=== PATIENT | female | born 1955 | race Caucasian/White ===

== ENCOUNTER 2016-08-18 15:05 | Outpatient (CLI) | payer OTHER ==
[~2016-08-18] VITALS: Ht 167.6 cm; Wt 62.4 kg
[2016-08-18] MEDS ORDERED: EST30C VG (15:15)
[2016-08-18 15:19] VITALS: BP 135/77
[2016-08-18 15:52] LABS: BASOPHILS % (AUTO) 0 % (0-10); EOSINOPHILS # (AUTO) 0.2 10^3/uL (0.0-0.3); EOSINOPHILS % (AUTO) 3 % (0-10); LYMPHOCYTES # (AUTO) 2.3 X 10^3 (1.0-4.0); LYMPHOCYTES % (AUTO) 33 % (12-44); MEAN CORPUSCULAR HEMOGLOBIN 30 PG (25-34); MEAN CORPUSCULAR HGB CONC 34 G/DL (32-36); MEAN CORPUSCULAR VOLUME 89 FL (80-99); MEAN PLATELET VOLUME 10.6 FL (7.4-10.4); MONOCYTES # (AUTO) 0.7 X 10^3 (0.0-1.0); MONOCYTES % (AUTO) 10 % (0-12); NEUTROPHILS # (AUTO) 3.6 X 10^3 (1.8-7.8); NEUTROPHILS % (AUTO) 53 % (42-75); PLATELET COUNT 209 10^3/uL (130-400); RED BLOOD COUNT 4.65 10^6/uL (4.35-5.85); WHITE BLOOD COUNT 6.8 10^3/uL (4.3-11.0)
== END 2016-08-18 16:00 | disposition home or self-care (01) ==
LOC: PREOP 15:05
PROVIDERS: ATTEND Obstetrics & Gynecology
DX: Z01.812 Encounter for preprocedural laboratory examination (principal); Z11.2 Encounter for screening for other bacterial diseases; N81.4 Uterovaginal prolapse, unspecified; D64.9 Anemia, unspecified
CPT/HCPCS: 36415; 85025; 86850; 86900; 86901; 87081

== ENCOUNTER 2016-08-25 10:00 | Day surgery (SDC) | payer OTHER ==
[~2016-08-25] VITALS: Ht 167.6 cm; Wt 62.4 kg
[~2016-08-25 10:00] MED LIST: EST30C VG
[2016-08-25] MEDS ORDERED: BUP/EPI 0.25% 1:200,000 (MARCAINE) 30 ML VIAL ONE (10:08)
[2016-08-25] MEDS ORDERED: ESTRADIOL VAGINAL CREAM 42.5 GM (ESTRACE) VG ONE (10:08)
[2016-08-25] MEDS ORDERED: ceFAZolin 1,000 MG (ANCEF) VIAL ONE (10:12)
[2016-08-25] MEDS ORDERED: NS (IVPB) 50 ML ONE (10:12)
[2016-08-25] MEDS: LACTATED RINGERS 1,000 ML IV PRN ×3 (10:15→14:35)
[2016-08-25] MEDS ORDERED: ONDANSETRON 4 MG/2 ML (SDV) Z0FRAN IV ONE (10:30)
[2016-08-25] MEDS ORDERED: FAMOTIDINE 20MG/2ML IV (PEPCID) IV ONE (10:30)
[2016-08-25] MEDS ORDERED: MIDAZOLAM 2 MG/2 ML (VERSED) VIAL IV ONE (10:30)
[2016-08-25] MEDS ORDERED: ceFAZolin 1 GM/NS 50 ML IVPB IV ONE ×2 (10:30)
[2016-08-25] MEDS ORDERED: SCOPOLAMINE 1.5 MG (TRANSDERM-SCOP) PATCH TOP ONE (10:30)
[2016-08-25] MEDS ORDERED: CATHETER FLUSH 10 ML SYR IV PRN (10:30)
[2016-08-25] MEDS ORDERED: ESTROGENS CONJ IV 25 MG/5 ML (PREMARIN) VIAL IV ONE (10:30)
[2016-08-25] MEDS ORDERED: LACTATED RINGERS 1,000 ML IV ONE ×3 (10:36→13:43)
[2016-08-25] MEDS ORDERED: ONDANSETRON 4 MG/2 ML (SDV) Z0FRAN ONE (10:36)
[2016-08-25] MEDS ORDERED: SEVOFLURANE (ULTANE) 15 ML INHAL SOLN ONE ×4 (10:36→13:57)
[2016-08-25] MEDS ORDERED: ROCURONIUM 50 MG/5 ML (ZEMURON) VIAL IV ONE (10:36)
[2016-08-25] MEDS ORDERED: proPOfol 200 MG/20 ML (DIPRIVAN) VIAL IV ONE (10:36)
[2016-08-25] MEDS ORDERED: LIDOCAINE PF 2% 10 ML (XYLOCAINE) AMP ONE (10:36)
[2016-08-25] MEDS ORDERED: DEXAMETHASONE PF 10 MG/ML (DECADRON) VIAL ONE (10:36)
[2016-08-25] MEDS ORDERED: fentaNYL INJECTION 100 MCG/2 ML AMP ONE ×2 (10:36→13:36)
[2016-08-25 10:44] VITALS: BP 157/79
--- NOTE | 2016-08-25 11:37 | Progress Note-Pre Operative ---
Pre-Operative Progress Note H&P Reviewed The H&P was reviewed, patient examined and no changes noted. Date H&P Reviewed: Aug 25, 2016 Time H&P Reviewed: 11:36 Pre-Operative Diagnosis: uuterovaginal prolapse/stress urinary incontinence DALLAS QUINONEZ MD Aug 25, 2016 11:37 am
[2016-08-25] MEDS ORDERED: WATER (STERILE) FOR INJ 10 ML BTL INJ ONE (11:45)
[2016-08-25] MEDS ORDERED: ESTROGENS CONJ IV 25 MG/5 ML (PREMARIN) VIAL IVP ONE (11:45)
[2016-08-25] MEDS ORDERED: MEPERIDINE (DEMEROL) INJ 100 MG/ML IM PRN (11:45)
[2016-08-25] MEDS ORDERED: ONDANSETRON 4 MG/2 ML (SDV) Z0FRAN IVP PRN ×2 (11:45→14:15)
[2016-08-25] MEDS ORDERED: oxyCODONE/APAP 10/325MG (PERCOCET 10) TABLET PO PRN (11:45)
[2016-08-25] MEDS ORDERED: BENZOCAINE/MENTHOL (DERMOPLAST) 56 ML CAN TP PRN (11:45)
[2016-08-25] MEDS ORDERED: NEOSTIGMINE (BLOXIVERZ ) 1 MG/1ML 10 ML VIAL ONE (13:23)
[2016-08-25] MEDS ORDERED: GLYCOPYRROLATE 0.2 MG/ML (ROBINUL) 2 ML VIAL ONE (13:23)
--- NOTE | 2016-08-25 13:41 | Progress Note-Post Operative ---
Post-Operative Progess Note Surgeon (s)/Cosmetic Counselor (s) Surgeon GIULIA MAN MD Cosmetic Counselor: CRISTIANO Pre-Operative Diagnosis MIXED INCONTINENCE, ISD, OAB Post-Operative Diagnosis SAME Post-Op Procedure Note Date of Procedure: Aug 25, 2016 Name of Procedure Performed: PVS AND CYSTO Description of the Procedure: PER DICTATION Findings of the Procedure SAME Anesthesia Type GENERAL Estimated blood loss (mL): 50CC Specimen(s) collected/removed NONE GIULIA MAN MD Aug 25, 2016 1:41 pm
[2016-08-25] MEDS ORDERED: HYDROmorphone (DILAUDID) 2 MG/ML VIAL ONE (13:49)
[2016-08-25] MEDS ORDERED: morphine INJ 10 MG/ML 1ML (SYR OR VIAL) ONE (13:49)
[2016-08-25] MEDS ORDERED: WATER (STERILE) FOR INJECTION 10 ML ONE (13:50)
[2016-08-25] MEDS ORDERED: ESTROGENS CONJ IV 25 MG/5 ML (PREMARIN) VIAL ONE (13:50)
[2016-08-25] MEDS ORDERED: fentaNYL INJECTION 100 MCG/2 ML AMP IVP PRN (14:15)
[2016-08-25] MEDS ORDERED: morphine INJ 10 MG/ML 1ML (SYR OR VIAL) IVP PRN (14:15)
[2016-08-25] MEDS ORDERED: HYDROmorphone (DILAUDID) 2 MG/ML VIAL IVP PRN (14:15)
[2016-08-25] MEDS: KETOROLAC 30 MG/ML VIAL IVP SCH ×2 (14:19→20:25)
[2016-08-25] MEDS: D5 LR IV SOLUTION 1,000 ML IV SCH ×2 (15:30→20:25)
[2016-08-25 15:31] VITALS: BP 118/70
--- NOTE | 2016-08-25 15:59 | OPERATIVE REPORT ---
DATE OF SERVICE: 08/25/2016 PREOPERATIVE DIAGNOSIS ON MY PART: Mixed urinary incontinence with overactive bladder and ISD. POSTOPERATIVE DIAGNOSIS ON MY PART: Mixed urinary incontinence with overactive bladder and ISD. OPERATION PERFORMED: Pubovaginal sling and cystoscopy. SURGEON: Giulia Man MD ANESTHESIA: General. COMPLICATIONS: None. BODY SPECIALIST: Darrell Sanchez MD SUMMARY: After Dr. Sanchez performed the first part of his surgery that he will dictate, I inserted a Cho catheter draining clear urine. I went ahead and patched the Solyx pubovaginal sling device on both sides using the described technique. The sling was sitting nicely under the mid urethra with no tension or twist and passed a curved hemostat easily between it and the underlying tissue. I went ahead and removed the Cho catheter, performed cystoscopy to confirm the integrity of the bladder, ureteral orifices and urethra and presence of the sling under the mid urethra. I left the bladder half full to perform manual Valsalva maneuver after removing the cystoscope and it was negative. I reinserted the Cho catheter, draining clear urine. I left it to abundant drainage. The patient tolerated the procedure and anesthesia well and Dr. Sanchez proceeded with the rest of the surgery that he will dictate. Job ID: [id number] DocumentID: [id number] Dictated Date: 08/25/2016 13:42:06 Sap Crm Developer Date: 08/25/2016 15:59:04 Dictated By: GIULIA MAN MD
[2016-08-25 20:00] VITALS: BP 112/63
[2016-08-26] VITALS: BP 99/54
[2016-08-26] MEDS: KETOROLAC 30 MG/ML VIAL IVP SCH ×2 (02:22→06:51)
[2016-08-26 04:30] VITALS: BP 98/61
[2016-08-26] MEDS: D5 LR IV SOLUTION 1,000 ML IV SCH (04:40)
--- NOTE | 2016-08-26 06:26 | Progress Note-Standard ---
Standard Progress Note Progress Notes/Assess & Plan Progress/Assessment & Plan patient is without complaint. She is tolerating by mouth well and has good pain control. Her Cho catheter was just now removed and bladder trial is ongoing. Patient has no nausea. Patient denies chest pain, denies shortness of breath, denies headache. Vital Signs Date Time Temp Pulse Resp B/P (MAP) Pulse Ox O2 Delivery O2 Flow Rate FiO2 08/26/16 04:30 98.2 64 17 98/61 92 Room Air 08/26/16 00:00 97.8 61 18 99/54 93 Room Air 08/25/16 20:00 97.8 69 18 112/63 98 Nasal Cannula 2.00 08/25/16 15:31 97.5 59 16 118/70 97 Room Air 08/25/16 10:44 96.9 67 16 157/79 95 Room Air I & O 08/26/16 07:00 Intake Total 3050 ml Output Total 240 ml Balance 2810 ml vital signs are stable. Patient is afebrile. Abdomen is benign. Bowel sounds are present. Extremities show clubbing or cyanosis. There is no Homans sign. Assessment and plan postoperative day number 1 doing well. Plan is for routine care today with discharge home providing bladder function is adequate. Final Diagnosis vaginal prolapse/stress urinary incontinence DALLAS QUINONEZ MD Aug 26, 2016 6:26 am
[2016-08-26] MEDS ORDERED: DOCU100C37 PO (06:27)
[2016-08-26] MEDS ORDERED: IBUP-1780 PO (06:27)
[2016-08-26] MEDS ORDERED: OXYC-465 PO (06:27)
--- NOTE | 2016-08-26 06:29 | Discharge Instructions ---
Discharge Instructions Discharge Medications New, Converted or Re-Newed RX: RX on Chart Patient Instructions Patient Instructions: as directed Return to The Hospital For: as directed Activity & Diet Discharge Diet: No Restrictions Activity as Tolerated: No Orders-Post D/C & Referrals Follow Up Appt: return to clinic with me next SundayAugust 30, 2016 at 930 a.m. for staple removal Call to make follow up appt. for patient in 4 weeks. Activity: Rest for 24 hours, than as tolerated. Wound Care: May remove Band-Aid tomorrow. Replace as desired. Keep incisions clean and dry. Wash daily with soap and water. Please call in RX to patient pharmacy. Diet: As tolerated-Clear Liquids only if nauseated. Tomorrow, may shower or tub bathe as desired. No driving for 24 hours, no alcoholic beverages for 24 hours, and nothing per vagina (no tampons, douching, or intercourse) for 8 weeks. Patient to return to the clinic as soon as possible for: Temperature greater than 101F, Severe Pain, Foul discharge from incision or vagina, Excessive Bleeding (more than a period). DALLAS QUINONEZ MD Aug 26, 2016 6:29 am
[2016-08-26 08:00] VITALS: BP 140/75
--- NOTE | 2016-08-26 09:40 | Anesthesia-General Post-Op ---
General Patient Condition Mental Status/LOC: Same as Preop Cardiovascular: Satisfactory Nausea/Vomiting: Absent Respiratory: Satisfactory Pain: Controlled Complications: Absent Post Op Complications Complications None Follow Up Care/Instructions Patient Instructions None needed. Anesthesia/Patient Condition Patient Condition Patient is doing well, no complaints, stable vital signs, no apparent adverse anesthesia problems. No complications reported per nursing. EDUAR PERERA CRNA Aug 26, 2016 09:40
[2016-08-26] MEDS: DOCUSATE SODIUM 100 MG (COLACE) CAP PO SCH ×2 (09:59→21:32)
--- NOTE | 2016-08-26 10:22 | Progress Note-Urology ---
Progress Note-Urology Progress Notes/Assess & Plan Progress/Assessment & Plan DOING WELL. HAS NOT VOIDED SINCE MENENDEZ OUT. TEACH SELF CATH AND DISCHARGE. Final Diagnosis INCONTINENCE GIULIA MAN MD Aug 26, 2016 10:22 am
--- NOTE | 2016-08-26 11:01 | OPERATIVE REPORT ---
DATE OF SERVICE: 08/25/2016 PREOPERATIVE DIAGNOSIS: Uterovaginal prolapse and stress urinary incontinence. POSTOPERATIVE DIAGNOSIS: Uterovaginal prolapse and stress urinary incontinence. OPERATIVE PROCEDURE: Total laparoscopic hysterectomy with bilateral salpingo-oophorectomy using da Pascale assistance as well as anterior and posterior vaginal repair with enterocele repair and with Dr. Patel performing a pubovaginal sling and cystoscopy. OPERATIVE DESCRIPTION: With the patient in the supine position under satisfactory general anesthesia, she is repositioned in the dorsal lithotomy position in the [facility] and prepped and draped in the usual fashion for abdominal and vaginal surgery. Cho catheter was placed in the urinary bladder and left to drainage. A weighted speculum was placed in the posterior fornix of the vagina. Cervix was exposed and grasped anteriorly with single tooth tenaculum. The cervix prolapsed outside the introitus. There was a 3rd degree cystocele present and a 1st-2nd degree rectocele. The uterus was sounded to 10 cm with the uterine sound. The cervix was then serially dilated with David dilators to accommodate a BART II manipulator which was placed using a 6 mm x 8 cm uterine probe and a 30 mm colpotomy ring. Sutures of #1 Vicryl were placed at 3 and 9 o'clock positions of the cervix and affixed to the manipulator as well. The patient was brought in the low dose lithotomy position. A 12 mm incision was made just superior to the umbilicus, 8 mm incisions were made 9 cm lateral to the umbilicus on both sides. All 3 incision sites were infiltrated with 0.25% Marcaine with epinephrine prior to the incision. Veress needle was placed through the umbilical incision. Correct placement confirmed with a water drop test. The abdomen was insufflated with 2.4 liters of carbon dioxide, then the Veress needle was removed and a 12 mm Optiview laparoscopic port placed. Laparoscope port placed. Laparoscope was introduced. The abdominal wall was transilluminated and ports of 8 mm were placed under direct vision through those sites. The patient was now placed in Trendelenburg allowing the bowel to split up out of the pelvis and da [email or web address] console was then advanced onto the patient and docked and operative instrument placed in the right and left lateral ports and I retired to the da Pascale console. At the console, the pelvis was examined. Both ovaries were somewhat atretic appearing. Fallopian tubes showed evidence of remote tubal sterilization. There was a single focus of endometriosis in the right ovarian fossa. The uterus was somewhat mottled in appearance but otherwise normal. The laparoscope was rotated. The appendix was identified. It was a normal vermiform appendix. There were some adhesions of the sigmoid to the left pelvic brim. These were light and filmy. They were elevated and the vessel sealer was used to clamp, cauterize, and divide those adhesions, avoiding any thermal or traumatic injury to the bowel or to adjacent structures. With the adhesions dealt with, attention was turned to the intended procedure. The right fallopian tube and ovary were grasped and elevated. The IP ligament was clamped, cauterized and divided with the vessel sealer. This continued across the mesovarium across the round ligament and across the broad ligaments to the side of the uterus and then down the side of the uterus onto the cardinal ligament. The right ureter was seen to peristalse medial to the IP ligament and lateral to the cervix. The same procedure was performed on the left with the same result and that ureter was identified and was well away from the areas of dissection as well. The vessel sealer was now replaced with a monopolar shear. The anterior lower uterine segment of the peritoneum was divided, allowing the bladder to be dissected down off the lower uterine segment and off of the cervix, exposing the vaginal wall at its junction with the cervix. A colpotomy incision was started at the 12 o'clock position and continued circumferentially to the 2 o'clock position, then counterclockwise until the entire colpotomy ring was exposed, allowing for removal of the uterus with the tubes and ovaries still attached through the vagina. The vaginal cuff was now closed using a Cobra grasper on the left and a Merlin Cut needle tanker driver on the right and using 2 V-Loc Nakia sutures starting 1st from the right angle and including the closure of the uterine vessels in the suture, and then continuing to the midportion of the vaginal cuff and then doing the same thing from the left. The peritoneum was brought back down onto the vaginal cuff with the final suture. Hemostasis was complete. Good reapproximation of the tissue was evident and good support of the vaginal apex was achieved by attaching the vaginal apex to the uterosacral ligament with the initial 2 suture placements on each side. The pelvis was now copiously irrigated and examined for hemostasis, which was complete, with no abnormal pathology and the procedure complete. The da Pascale instruments were removed. The console was removed from the patient. The patient was brought out of Trendelenburg. The abdomen was evacuated. The insufflating gas and all ports were removed under direct vision in the process. The skin incisions were closed with veronika after closing the fascia at the umbilical incision with the [id number] suture of 2-0 Vicryl. Attention was now turned to the anterior and posterior vaginal repairs. The patient was brought in dorsal lithotomy position. The Cho catheter was removed. A weighted speculum was placed in the posterior fornix at the time. The vaginal wall was grasped in its midpoint with 2 Jolly clamps. At this point, the patient had essentially a 1st-2nd degree cystocele as the large portion of the cystocele was elevated by support of the vaginal apex. The vaginal wall was opened in the midline with Metzenbaum scissors. The bladder was carefully dissected off the muscularis of the vagina back to the pubic rami bilaterally. The bladder wall was then plicated with 2-0 Vicryl sutures, reapproximating the endopelvic fascia onto the bladder as well. Good support of the bladder and urethra was evident. The urethra was somewhat elongated by the sutures by elevating the bladder wall. Dr. Patel assumed care of the patient at this point performing a ____ vaginal sling and cystoscopy, which he will dictate. I remained to assist. Upon completion of Dr. Patel's portion of the procedure, I resumed care of the patient, resected rent down to anterior vaginal wall muscularis mucosa and then closed the vaginal wall with a running locked suture of 3-0 Vicryl. Good support was evident and good hemostasis was achieved. Posterior repair was now affected by placing Jolly clamps on the perineum and the hymenal ring at 5 and 7 o'clock position. The inverted triangle of skin was removed from the perineal body and then upright from the posterior vaginal floor. The rectovaginal space was entered sharply and dissected bluntly to the apex of the vagina where it was explored for an enterocele. There was a small one that was plicated with 2 pursestring sutures of 2-0 Vicryl obliterating the enterocele. The rectovaginal space was then obliterated with additional sutures of 2-0 Vicryl. The perineal body was restored with sutures of 2-0 Vicryl. Redundant posterior vaginal wall muscularis mucosa was removed sharply. The vaginal wall was closed with a running suture of 3-0 Vicryl. That closure was continued past the hymenal ring and back down onto the perineal body and then back up subcu to the hymenal ring where the suture was tied. Digital rectal exam confirmed no stricture or stenosis of the rectum. The vagina was examined for hemostasis. That being complete, the vagina was filled with vaginal cream and a gauze of Kerlix was used for packing for the vagina. The Cho catheter was left to dependent drainage by Dr. Patel. Sponge and needle counts were correct on completion of the procedure. Estimated blood loss was around 200 mL. The patient tolerated the procedure well and was uneventfully awakened from general anesthesia and transferred to the recovery room in stable condition. Job ID: [id number] DocumentID: [id number] Dictated Date: 08/25/2016 14:04:13 Software Development Coordinator Date: 08/25/2016 17:34:40 Dictated By: DALLAS QUINONEZ MD
[2016-08-26 12:00] VITALS: BP 158/71
[2016-08-26] MEDS: IBUPROFEN 800 MG (MOTRIN) TAB PO SCH ×2 (12:00→18:08)
[2016-08-26 16:00] VITALS: BP 132/70
[2016-08-26 21:30] VITALS: BP 91/58
[2016-08-27] MEDS: IBUPROFEN 800 MG (MOTRIN) TAB PO SCH ×2 (01:28→06:36)
[2016-08-27 03:05] VITALS: BP 112/64
--- NOTE | 2016-08-27 07:32 | Progress Note-Standard ---
Standard Progress Note Progress Notes/Assess & Plan Progress/Assessment & Plan patient is without complaint. She is tolerating by mouth well and has good pain control. Her Cho catheter was just now removed and bladder trial is ongoing. Patient has no nausea. Patient denies chest pain, denies shortness of breath, denies headache. Vital Signs Date Time Temp Pulse Resp B/P (MAP) Pulse Ox O2 Delivery O2 Flow Rate FiO2 08/26/16 04:30 98.2 64 17 98/61 92 Room Air 08/26/16 00:00 97.8 61 18 99/54 93 Room Air 08/25/16 20:00 97.8 69 18 112/63 98 Nasal Cannula 2.00 08/25/16 15:31 97.5 59 16 118/70 97 Room Air 08/25/16 10:44 96.9 67 16 157/79 95 Room Air I & O 08/26/16 07:00 Intake Total 3050 ml Output Total 240 ml Balance 2810 ml vital signs are stable. Patient is afebrile. Abdomen is benign. Bowel sounds are present. Extremities show clubbing or cyanosis. There is no Homans sign. Assessment and plan postoperative day number 1 doing well. Plan is for routine care today with discharge home providing bladder function is adequate. August 27, 2016 Patient is without complaint. She is ambulating, tolerating by mouth well, has good pain control. her discharge was held yesterday secondary to urinary retention. She still is not voiding adequately half-hour she is able to straight catheter per Dr. Dove 4 hours when necessary. She feels ready for discharge home today Vital Signs Date Time Temp Pulse Resp B/P (MAP) Pulse Ox O2 Delivery O2 Flow Rate FiO2 08/27/16 03:05 99.0 82 18 112/64 96 Room Air 08/26/16 21:30 98.7 76 18 91/58 94 Room Air 08/26/16 16:00 100.4 81 18 132/70 95 Room Air 08/26/16 12:00 99.6 70 18 158/71 98 Room Air 08/26/16 08:00 97.8 63 18 140/75 96 Room Air I & O 08/27/16 07:00 Intake Total 2640 ml Output Total 1635 ml Balance 1005 ml Vital signs are stable. Patient is afebrile. Abdomen is benign. Extremities show clubbing cyanosis. There is no Homans sign. Assessment and plan postoperative day number 2 doing well. Plan is for discharge home with follow-up in clinic Final Diagnosis vaginal prolapse/stress urinary incontinence DALLAS QUINONEZ MD Aug 27, 2016 7:32 am
[2016-08-27 08:00] VITALS: BP 105/56
[2016-08-27] MEDS: DOCUSATE SODIUM 100 MG (COLACE) CAP PO SCH (09:48)
== END 2016-08-27 10:55 | disposition home or self-care (01) ==
LOC: SDC 10:00 → WS 15:29 → SDC 08-27 10:55
PROVIDERS: ATTEND Obstetrics & Gynecology
DX: N81.3 Complete uterovaginal prolapse (principal); N39.3 Stress incontinence (female) (male); N80.0 Endometriosis of uterus; N83.8 Other noninflammatory disorders of ovary, fallopian tube and broad ligament
CPT/HCPCS: 88307; 94664; 96361; 96375; 96376

== ENCOUNTER 2018-11-28 18:09 | Emergency (ER) | payer OTHER ==
[~2018-11-28] VITALS: Ht 167.6 cm; Wt 64.0 kg
[~2018-11-28 18:09] MED LIST changes: +DOCU100C37 PO; +IBUP-1780 PO; +OXYC-465 PO
[2018-11-28] MEDS ORDERED: MOME15CR17 TP (18:41)
[2018-11-28] MEDS ORDERED: METH4TAB PO (18:41)
--- NOTE | 2018-11-28 18:41 | ED Integumentary General ---
General Chief Complaint: Skin/Wound Problems Stated Complaint: RASH ON R ARM AND BACK Nursing Triage Note: LEOBARDO STATES THAT SHE HAS HAD A RASH ON HER ARMS LEGS AND ACROSS HER BACK X2 WEEKS. SHE HAD A SUNBURN ON 11/13 BUT NO OTHER ISSUES WITH HER SKIN. Source: patient History of Present Illness Date Seen by Provider: Nov 28, 2018 Time Seen by Provider: 18:28 Initial Comments PT ARRIVES VIA POV C/O VERY ITCHY RASH ON ARMS, UPPER BACK, AND SHINS STATES SHE GOT A SUNBURN TO THESE AREAS ON 11/13, THEN A WEEK LATER SUNBURN WAS ABOUT HEALED, SHE BEGAN WITH THIS RASH IN THIS SAME AREA. PUT ALOE VERA ON SUNBURN, BUT HAS NOT USED IT IN A WEEK. HAS NOT TAKEN ANY BENADRYL, ETC, OR APPLIED ANY THING TO RASH TO HELP WITH ITCHING NO HISTORY OF SIMILAR NO RECENT ILLNESS NO NEW FOODS, PRODUCTS, MEDICATIONS OR EXPOSURES WORKS AT [employer]--NO NEW EXPOSURES AT WORK PCP: NONE Allergies and Home Medications Allergies Coded Allergies: No Known Drug Allergies (Unverified , 08/18/16) Home Medications Docusate Sodium 100 Mg Capsule, 100 MG PO BID Prescribed by: DALLAS FREDERICK on 08/26/16626 Estrogens Conjugated 30 Gm Cr, 30 GM VG HS, (Reported) Ibuprofen 800 Mg Tablet, 800 MG PO Q6HR Prescribed by: DALLAS FREDERICK on 08/26/16626 Methylprednisolone 4 Mg Tab.ds.pk, 4 MG PO UD Prescribed by: CHACHA ALVARADO on 11/28/181840 Mometasone Furoate 15 Gm Cream..g., 0 TP TID Prescribed by: CHACHA ALVARADO on 11/28/181840 Oxycodone HCl/Acetaminophen 1 Each Tablet, 1-2 TAB PO Q4H PRN for PAIN Prescribed by: DALLAS FREDERICK on 08/26/16626 Patient Home Medication List Home Medication List Reviewed: Yes Review of Systems Review of Systems Constitutional: no symptoms reported EENTM: no symptoms reported Respiratory: no symptoms reported Cardiovascular: no symptoms reported Gastrointestinal: no symptoms reported Genitourinary: no symptoms reported Musculoskeletal: no symptoms reported Skin: see HPI, pruritus, rash Psychiatric/Neurological: No Symptoms Reported Endocrine: No Symptoms Reported Hematologic/Lymphatic: No Symptoms Reported Past Ukcoswi-Bmompa-Ztdkxk Hx Patient Social History Alcohol Use: Denies Use Recreational Drug Use: No Smoking Status: Former Smoker 2nd Hand Smoke Exposure: No Recent Foreign Travel: No Contact w/Someone Who Travel: No Recent Infectious Disease Expo: No Recent Hopitalizations: No Seasonal Allergies Seasonal Allergies: No Past Medical History Surgeries: Yes (ESOPHAGEAL SURGERY-SWALLOWED FOREIGN OBJECT A CHILD) Section, Hysterectomy, Tubal Ligation Respiratory: No Cardiac: No Neurological: No Reproductive Disorders: Yes (UTEROVAGINAL PROLAPSE) Female Reproductive Disorders: Denies WALL WASHER History: Menopausal HIV/AIDS: No Genitourinary: No Gastrointestinal: Yes (SURGERY FOR SWALLOWED FOREIGN BODY A CHILD) Musculoskeletal: No Endocrine: No Loss of Vision: Bilateral Hearing Impairment: Denies Cancer: No Psychosocial: No Integumentary: No Blood Disorders: No Adverse Reaction/Blood Tranf: No Physical Exam Vital Signs Vital Signs - First Documented 11/28/18 18:16 Temp 98.1 Pulse 69 Resp 18 B/P (MAP) 164/85 (111) Pulse Ox 98 Capillary Refill : Less Than 3 Seconds General Appearance: WD/WN, no apparent distress HEENT: PERRL/EOMI, other (HERPETIC LESION TO RIGHT LOWER LIP) Neck: normal inspection Cardiovascular: regular rate, rhythm, no murmur Respiratory: normal breath sounds Extremities: normal range of motion, non-tender, no pedal edema, no calf tenderness, normal capillary refill Neurologic/Psychiatric: office services assistant II-XII nml as tested, no motor/sensory deficits, alert, normal mood/affect, oriented x 3 Skin: normal color, warm/dry, rash (EXTENSIVE, LARGE ERYTHEMATOUS PAPULES TO DORSAL ASPECT OF FOREARMS--RIGHT > LEFT, MILDER ON UPPER ARMS, MORE PRONOUNCED RASH EXTENDING AROUND SHOULDERS AND UPPER HALF OF BACK. ALSO HAS SIMILAR RASH TO ANTERIOR ASPECT OF LOWER LEGS/SHINS AND TOP OF FEET. MUCH EXCORIATION TO LEGS AND FOREARMS FROM ITCHING, PT ALSO WTH EXTENSIVE OLD SCARRING TO FOREARMS AND FACE FROM WHAT APPEARS TO BE PREVIOUS "SORES") Progress/Results/Core Measures Results/Orders Vital Signs/I&O 11/28/18 11/28/18 18:16 18:55 Temp 98.1 98.1 Pulse 69 69 Resp 18 18 B/P (MAP) 164/85 (111) 164/85 (111) Pulse Ox 98 98 Blood Pressure Mean: 111 Departure Impression Primary Impression: Pruritic rash Disposition: HOME, SELF-CARE Condition: Stable Departure-Patient Inst. Referrals: NO,LOCAL PHYSICIAN (PCP/Family) Primary Care Physician Patient Instructions: Skin Rash (DC) Add. Discharge Instructions: CLARITIN 10 MG IN AM, BENADRYL 50 MG IN PM NEEDED FOR ITCHING FOLLOW UP WITH DR. OF CHOICE IN 3-4 DAYS IF NO BETTER All discharge instructions reviewed with patient and/or family. Voiced understanding. Scripts Mometasone Furoate (Elocon) 15 Gm Cream..g. 0 TP TID, #1 TUBE Prov: CHACHA ALVARDAO DO 11/28/18 Methylprednisolone (Medrol) 4 Mg Tab.ds.pk 4 MG PO UD, #1 PKG Prov: CHACHA ALVARADO DO 11/28/18 CHACHA ALVARADO DO Nov 28, 2018 18:41
[2018-11-28 18:55] VITALS: BP 164/85
== END 2018-11-28 18:58 | disposition home or self-care (01) ==
LOC: EDUNIT# 18:09 → ER 18:10
DX: L29.9 Pruritus, unspecified (principal); Z87.891 Personal history of nicotine dependence; Z90.710 Acquired absence of both cervix and uterus; Z98.51 Tubal ligation status
CPT/HCPCS: 99282